=== PATIENT | male | born 1990 | race Caucasian/White ===

== ENCOUNTER 2017-06-04 09:04 | Emergency (ER) | payer OTHER | END 2017-06-04 12:31 | disposition home or self-care (01) | LOC: D.ER 09:04 | DX: S00.83XA Contusion of other part of head, initial encounter (principal); V89.0XXA Person injured in unspecified motor-vehicle accident, nontraffic, initial encounter; Y92.410 Unspecified street and highway as the place of occurrence of the external cause ==